=== PATIENT | male | born 1975 | race Caucasian/White ===

== ENCOUNTER 2022-04-17 13:55 | Emergency (ER) | payer BC, SELFPAY ==
--- NOTE | ~2022-04-17 | XR_ITS ---
EXAMINATION: XR knee LT min 4V DATE: 04/17/2022 15:08 INDICATION: Left knee pain TECHNIQUE: Four views of the left knee were obtained. COMPARISON: None. FINDINGS: There is a partially imaged intramedullary camilo in the femur traversing an oblique shaft fra cture surrounded by calcified callus. There is mild tricompartmental osteoarthritis characterized by tiny marginal osteophytes. No joint effusion/synovitis. Soft tissues are unremarkable. IMPRESSION: 1. No acute osseous abnormality. Reviewed, dictated and finalized at location [facility]
--- NOTE | ~2022-04-17 | XR_ITS ---
EXAMINATION: XR shoulder RT min 2V INDICATION: Right shoulder pain TECHNIQUE: Two views of the right shoulder are submitted. COMPARISON: 06/27/2013 FINDINGS: There is an age-indeterminate fracture of the scapular body. The humeral head appears to be inferiorly subluxed with respect to the glenoid. An endovascular stent is noted in the right axilla. There is soft tissue swelling of the shoulder. There are multiple healed right-sided rib fractures. IMPRESSION: 1. Age indeterminate fracture of the scapular body. 2. Possible mild inferior subluxation of the humeral head. Given history of recent surgery, compariso n with any prior imaging is recommended to determine chronicity of findings. Reviewed, dictated and finalized at location [facility] IMPRESSION: 1. Age indeterminate fracture of the scapular body. 2. Possible mild inferior subluxation of the humeral head. Given history of rec ent surgery, comparison with any prior imaging is recommended to determine music typographer nicity of findings.
[2022-04-17 14:13] VITALS: BP 138/87; PULSE 85; RESP 16; TEMP 36.2; O2SAT 100
--- NOTE | 2022-04-17 15:05 | ED.UPPEXIN ---
HPI - Extremity Injury (Upper) General Chief Complaint: Extremity Injury, Upper Stated Complaint: injury Time Seen by Provider: 04/17/22 15:05 Source: patient Mode of arrival: ambulatory Limitations: no limitations History of Present Illness HPI narrative: 46-year-old male presents with complaint of pain to right shoulder and left knee. Patient reports that he was using an electric wheelchair [employer] today. He states that he drove the electric wheelchair back into the store to park it. He then walked out the exit doors and the automatic doors closed on him hitting his right shoulder left knee. States that this did not cause him to fall. States that the doors open and closed on him multiple times. Was witnessed by a worker at [employer]. He was told to come to [facility] for evaluation. He is ambulatory with steady gait. Patient has a previous injury to his right shoulder from a work accident. States a tree fell onto his right arm. He has had extensive surgeries to the right arm concurrently has no range of motion and numbness due to previous injury. All systems reviewed and negative except as noted above. Related Data Home Medications Medication Instructions Recorded Confirmed apixaban 5 mg tablet (Eliquis) 5 mg PO BID 04/17/22 04/17/22 aspirin 81 mg tablet,delayed 81 mg PO DAILY 04/17/22 04/17/22 release atorvastatin 80 mg tablet 80 mg PO DAILY 04/17/22 04/17/22 fluoxetine 20 mg capsule 20 mg PO DAILY 04/17/22 04/17/22 gabapentin 600 mg tablet 600 mg PO TID 04/17/22 04/17/22 hydrocodone 5 mg-acetaminophen 325 1 tablet PO DIRECTED PRN Pain 04/17/22 04/17/22 mg tablet memantine 5 mg tablet 5 mg PO DAILY 04/17/22 04/17/22 prazosin 1 mg capsule 1 mg PO QHS 04/17/22 04/17/22 propranolol 60 mg tablet 60 mg PO DIRECTED 04/17/22 04/17/22 ramelteon 8 mg tablet 8 mg PO HS 04/17/22 04/17/22 trazodone 50 mg tablet 50 mg PO DIRECTED 04/17/22 04/17/22 Allergies Allergy/AdvReac Type Severity Reaction Status Date / Time Penicillins Allergy Mild Unverified 12/29/13 17:20 Review of Systems Review of Systems: CONSTITUTIONAL: Denies fever, chills, or sweats. EYES: Denies visual changes, redness, or discharge. ENT: Denies rhinorrhea, congestion, sore throat, or otalgia. CARDIOVASCULAR: Denies chest pain, palpitations, or edema. RESPIRATORY: Denies cough or dyspnea. GASTROINTESTINAL: Denies abdominal pain, nausea, vomiting, or diarrhea. GENITOURINARY: Denies dysuria or hematuria. SKIN: Denies rash or itching. MUSCULOSKELETAL: Reports pain to left knee and right shoulder. NEUROLOGIC: Denies headache, numbness, or weakness. PSYCHIATRIC: Denies anxiety or depression. All other systems reviewed are negative, except as documented in HPI. PMFSH Comments At time of signature, agree with nursing past medical, surgical, social and family history. There is no relevant family history pertinent to the presenting complaint. Exam Narrative: GENERAL: This is a well-nourished, well-developed patient, in no apparent distress. HEAD: normocephalic, atraumatic. EYES: PERRL. Sclera clear/white. Vision is grossly intact. EARS: External ears normal NOSE: External nose normal NECK: Neck supple, non-tender without lymphadenopathy, masses or thyromegaly. CARDIOVASCULAR: Regular rate and rhythm without murmurs, gallops, or rubs. RESPIRATORY: Clear to auscultation. Breath sounds equal bilaterally. No wheezes, rales, or rhonchi. SKIN: warm, Dry, intact with no suspicious lesions or rash, good texture and turgor. NEURO: awake, alert, and oriented to person, place and time. There were no obvious focal neurologic abnormalities. EXTREMITIES: Tenderness to range further had a AC joint. Patient unable to move right upper extremity due to previous injury. distal neurovascularly intact. Swelling to entire right upper extremity due to previous injury. Tenderness to left knee at patellar tendon. Range of motion intact. No swelling not
== END 2022-04-17 15:41 | disposition home or self-care (01) ==
PROVIDERS: Emergency Provider Nurse Practitioner Family; PCP Physician Assistant
DX: S40.011A Contusion of right shoulder, initial encounter (principal); S80.02XA Contusion of left knee, initial encounter; W20.8XXA Other cause of strike by thrown, projected or falling object, initial encounter; M17.12 Unilateral primary osteoarthritis, left knee; B37.2 Candidiasis of skin and nail; Z79.82 Long term (current) use of aspirin; Z86.73 Personal history of transient ischemic attack (TIA), and cerebral infarction without residual deficits; I48.91 Unspecified atrial fibrillation; E78.00 Pure hypercholesterolemia, unspecified; I10 Essential (primary) hypertension; F41.9 Anxiety disorder, unspecified; F32.A Depression, unspecified
CPT/HCPCS: 73030; 73564; 99214; A4565; G0463